=== PATIENT | male | born 1940 | race Caucasian/White ===

== ENCOUNTER 2019-01-21 14:40 | Emergency (ER) | payer MEDICARE, OTHER, SELFPAY ==
[2019-01-21] VITALS (7 sets, daily range): BP systolic 117–144; BP diastolic 60–77; PULSE 80–107; RESP 14–18; TEMP 36.1–37.1; O2SAT 96–98; BMI 25.0
[2019-01-21] MEDS: Lactated Ringers 1,000 ML 60 ML IV (15:32)
--- NOTE | 2019-01-21 15:34 | PCM.CONS.B ---
- Consult Date of Consult: 01/21/19 - Reason for Consult Chief Complaint: buttock abscess - asked to see patient by ED physician History of Present Illness: 78 y/o WM presents with large left buttock abscess noted for greater than 3 weeks. Tried to self treat at home. Seen by his PCP, and told to go to nearest ED. Has had smaller skin abscesses in the past. Denies TOB Denies diabetes Past Medical History: hypertension Past Surgical History: inguinal hernia repairs Medications: proscar metoprolol MVI Allergies: Has no known drug allergies Social history: TOB use denies Review of Systems: General - denies fevers Cardiovascular denies chest pain Pulmonary denies shortness of breath, denies coughing up blood Gastrointestinal denies blood in stools, denies fecal incontinence Neurological denies seizures Genitourinary denies blood in urine Hematological denies spontaneous/prolonged bleeding Skin see above Musculoskeletal denies difficulties Endocrine denies diabetes Psychological denies hallucinations Physical examination: Vital signs Temp 97.6F BP 131/74 General WD/WN WM in no apparent distress, alert and oriented, not septic appearing HEENT Normocephalic. EOM intact with sclera clear and no icterus noted. Neck is supple with no jugular venous distention noted. Trachea is midline. Lungs no labored breathing noted, such as retractions. No cough heard. Heart regular Abdomen soft and benign. Extremities no pitting edema noted. Genitourinary/Rectal deferred Skin large left buttock abscess with surrounding skin erythema extending about 15 cm Neurological non focal Psychological normal affect, patient is calm and appropriate Impression: large left buttock abscess Discussion/Plan: I have discussed the above with the patient and his who is present with him. I have offered incision and drainage of this lesion. The patient states that he doesn't like pain. I have therefore offered procedure to be done with IV moderate sedation and of course, local anesthetic. I have explained the procedure to the patient. I have counseled the patient as to the risks of the procedure, including but not limited to: infection, bleeding, continued wound infections, complications of anesthesia, etc.- the patient understands. I have answered all questions to the patient?s satisfaction and the patient has no further questions.
--- NOTE | 2019-01-21 15:56 | ED.VISSUMM ---
- ER Visit Summary Date of Service: 01/21/19 Chief Complaint: Buttock abscess History of Present Illness: The patient is a 78 M presenting with abscess left buttock. He states this has been ongoing for the past 1 month. He has had previous abscesses which have drained on their own. He went to his primary care physician today and was sent to the ED for further evaluation. He denies fever, drainage, or other complaints. Physical Examination: Vitals are stable. Patient is afebrile. Alert no acute distress. HEENT exam is unremarkable. Neck is supple. Lungs are clear and equal bilaterally. Heart is regular rate and rhythm. Abdomen is soft nontender nondistended. Buttock: Left buttock 15 cm abscess with fluctuance Extremities are unremarkable. Skin is warm and dry. Remainder of exam is unremarkable. Emergency Department Course and Treatment: Discussed with Dr. Cardenas who will evaluate the patient in the ED. I&D was performed per Dr. Cardenas. He was given Keflex and [place] per Dr. Cardenas. He will follow-up in the office on Monday. Advised return to ED for any worsening complaints. Disposition: Discharge home Impression: Left buttock abscess This note was generated with [employer] dictation software. It may contain incorrect words, spelling, and punctuation that were not noted in review of the chart prior to signing ED Disposition - Plan for ED Patient: Instructions: ED Abscess IandD Prescriptions: Cephalexin [Keflex] 500 mg PO Q12 7 Days #14 cap Hydrocodone/Acetaminophen [[place] 5-325 Tablet] 1 ea PO BID PRN PRN 4 Days #8 tab PRN Reason: Mod-Severe Pain (4-08/15) Referrals: Soraya Cardenas MD [STAFF PHYSICIAN] -
--- NOTE | 2019-01-21 16:09 | NURSING ---
procedure started at 1545, Dr. Cardenas pushed 3mg versed IVP and 50 mcg fentanyl at 1548, procedure started without issue, VSS, patient sedated but arousable. @ 1558 another 2mg versed and 50 mcg fentanyl given, VSS, patient still sedated but arousable with painful stimuli. Procedure complete @ 1618.
[2019-01-21] MEDS: Midazolam 5 MG/ML Syringe IV (16:21)
[2019-01-21] MEDS: fentaNYL 100 MCG/2 ML Ampul IV (16:21)
--- NOTE | 2019-01-21 16:25 | PCM.DC.GS ---
Discharge Diet: No Restrictions Discharge Activity: Return to Normal Activity, May not drive while taking narcotic pain medications. Additional Dressing/Incision Instructions:: Leave dressing in place Allergies/Adverse Reactions: Allergies No Known Allergies Allergy (Verified 01/21/19 14:43) Medications to take at Discharge Cephalexin [Keflex] 500 mg PO Q12 7 Days #14 cap 01/21/19 Finasteride [Proscar] 5 mg PO DAILY 01/21/19 Fish Oil/Dha/Epa [Fish Oil 1,200 mg Fish Oil] 1 each PO DAILY 01/21/19 Glucosamine/MSM/Chondroitin A [Glucosamine Chondroit MSM Tab] 1 each PO BID 01/21/19 Hydrocodone/Acetaminophen [[place] 5-325 Tablet] 1 ea PO BID PRN PRN 4 Days #8 tab 01/21/19 Metoprolol(XL)Succ [Toprol Xl (Beta Missael)] 50 mg PO DAILY 01/21/19 Multivitamin [One-Daily Multi-Vitamin] 1 each PO DAILY 01/21/19 The following prescriptions were given: Cephalexin [Keflex] 500 mg PO Q12 7 Days #14 cap Hydrocodone/Acetaminophen [[place] 5-325 Tablet] 1 ea PO BID PRN PRN 4 Days #8 tab PRN Reason: Mod-Severe Pain (4-10/10) Primary Care Physician: Care Physician,No Primary [Primary Care Provider] - Test Results: Test results from this visit will be discussed in further detail at your follow-up appointment, if applicable. Please Follow Up With: Soraya Cardenas MD - When: to be seen on January 23 at 3:00
--- NOTE | 2019-01-21 16:30 | DCINST.ED_ITS ---
ED Disposition - Plan for ED Patient: Instructions: ED Abscess IandD Prescriptions: Cephalexin [Keflex] 500 mg PO Q12 7 Days #14 cap Hydrocodone/Acetaminophen [[place] 5-325 Tablet] 1 ea PO BID PRN PRN 4 Days #8 tab PRN Reason: Mod-Severe Pain (-08/15) Referrals: Soraya Cardenas MD [STAFF PHYSICIAN] -
--- NOTE | 2019-01-22 11:08 | PCM.OPRPT ---
Report of Operation Date of Procedure: 01/21/19 Pre-Operative Diagnosis: left buttock abscess Post-Operative Diagnosis: same Surgery/Procedure Performed:: incision and drainage of left buttock abscess Description of Surgical Findings:: large acute and chronic left buttock abscess - 6 x 7 cm with a depth of 3 cm with surrounding erythema and induration, minimal skin necrosis Type of Anesthesia:: IV Sedation - 5 mg versed and 100 micrograms of fentanyl and local 1% xylocaine with epinephrine Anesthesiologist: Soraya Cardenas Specimen's removed: aerobic cultures Estimated Blood Loss (mL): minimal Fluids Replaced: 100 ml RL Description of Procedure: After informed consent was given, the patient was lying prone on the examination bed in the room. This was a bedside procedure done in the Emergency Room. Appropriate time out protocol was followed. IV conscious sedation was then administered by me. The patient?s left buttock then prepped with a surgical skin preparation and sterile surgical drapes were placed. The skin and subcutaneous tissues in and around the abscess were then infiltrated with 1% xylocaine with epinephrine. A skin incision was then made in a cruciate fashion with a 15 blade scalpel overlying the lesion. There was purulent fluid in the abscessed cavity. This was evacuated. The wound cavity had the following dimensions - 6 x 7 cm with a depth of 3 cm. There was fibrinous exudate and senescent granulation tissue and non - viable fatty tissues. Bleeding was controlled by pressure. The wound cavity was vigorously irrigated with hydrogen peroxide. The wound was then densely packed with gauze for hemostasis. Gauze dressings were then applied over the wound and a sterile Opsite dressing was applied. The patient tolerated the procedure well. He was discharged from the ED in stable condition. - Complications none noted
== END 2019-01-21 18:17 | disposition home or self-care (01) ==
LOC: ED 15:23
PROVIDERS: Emergency Provider Emergency Medicine
DX: L02.31 Cutaneous abscess of buttock (principal); I10 Essential (primary) hypertension; Z79.899 Other long term (current) drug therapy
CPT/HCPCS: 10060; 87070; 87075; 87077; 87186; 87205; 99152; 99153; 99282; J7120; A4216

== ENCOUNTER → 2019-06-19 10:25 | Outpatient (CLI) | payer MEDICARE, OTHER, SELFPAY ==
[2019-01-21 14:41] VITALS: BMI 25.0
[2019-06-19 12:15] LABS: Thyroid Stim Hormone (TSH) 4.89 uIU/mL (0.358-3.74); Vitamin B12 847 pg/mL (211-911)
[2019-06-21 05:06] LABS: Ceruloplasmin 24.9 mg/dL (16.0-31.0)
[2019-06-21 12:36] LABS: Copper, Serum or Plasma 112 ug/dL (72-166)
== END ==
PROVIDERS: Referring Provider Psychiatry & Neurology Neurology; Visit Provider Psychiatry & Neurology Neurology
DX: R25.1 Tremor, unspecified (principal)
CPT/HCPCS: 36415; 82390; 82525; 82607; 84443

== ENCOUNTER 2020-02-23 12:31 | Emergency (ER) | payer MEDICARE, OTHER, SELFPAY ==
[2019-01-21 14:41] VITALS: BMI 25.0
[2020-02-23 12:32] VITALS: BP 131/79; PULSE 63; RESP 16; TEMP 36.2; O2SAT 97; BMI 25.0
--- NOTE | 2020-02-23 12:47 | VDUE_ITS ---
Reason For Study: SWELLING Right Proximal Right jugular vein is spontaneous, widely patent, phasic, with no intraluminal echogenicity noted. Right subclavian vein is spontaneous, widely patent, phasic, with no intraluminal echogenicity noted. Right Lower Arm Right radial vein is compressible. Right ulnar vein is compressible. Right Arm Right axillary vein is spontaneous, patent, phasic, competent, compressible and demonstrates augmentation. Right brachial vein is compressible. Right cephalic vein is compressible. Right basilic vein is compressible. Interpretation Summary No evidence for acute deep venous thrombosis[right] upper extremity with patent and compressible cephalic and basilic veins. Ordering Physician: Lexa Padilla Performed By: Salvador Ford RVT ?
[2020-02-23 13:03] VITALS: BP 131/79; PULSE 63; RESP 16; TEMP 36.2; O2SAT 97
--- NOTE | 2020-02-23 13:54 | ED.VISSUMM ---
- ER Visit Summary Date of Service: 02/23/20 Chief Complaint: [Swelling to right hand and wrist] History of Present Illness: The patient is a 79 M [presents with symptoms that started about a week ago. Patient denies any injury. He denies any fever. Denies any cough. He denies recent travel or surgery. No history of gout. He denies any weakness in the extremity just it swollen and knees are having a hard time he can a fist with his hand because of that.] Physical Examination: [HEENT-PERRLA, EOMI. Cranial nerves II through XII grossly intact. TMs clear. Mucous membranes moist. No adenopathy. Cardiovascular-regular rate and rhythm without murmur or ectopy Lungs-clear to auscultation, chest wall stable without crepitus or subcu emphysema Abdomen-normoactive bowel sounds, soft, nontender, no rebound or rigidity, no peritoneal signs. Extremities-intact ?4, normal range of motion, normal pulses, atraumatic. Right hand-patient does have some faint edema of the hand compared to the left hand. He is got some faint erythema over the volar aspect of the wrist as well as the dorsum of the wrist. He has good range of motion at the wrist but has some mild discomfort with range of motion. He is neurovascular intact. He has normal pulses.] Test Results: [Venous Doppler of the right upper extremity obtained and was negative for DVT] Emergency Department Course and Treatment: [Etiology of symptoms unclear although in the differential would be gout or cellulitis. I will start patient on Keflex and prednisone. I will asked that he follow-up with his primary care physician 3 to 5 days] Treatment Plan: [Patient will be started on Keflex and prednisone and advised to follow-up with primary care physician in 3 to 5 days. Patient advised to return if worsening pain, fever, increased swelling or redness, or condition worsen anyway.] Disposition: [Discharged home in stable condition] Impression: [Edema right hand Right wrist pain] This note was generated with [employer] dictation software. It may contain incorrect words, spelling, and punctuation that were not noted in review of the chart prior to signing ED Disposition - Plan for ED Patient: Referrals: Care Physician,No Primary [Primary Care Provider] -
--- NOTE | 2020-02-23 13:56 | ED.DEP ---
ED Disposition - Plan for ED Patient: Instructions: ED Peripheral Edema, Unilateral, ED ARTHRITIS Gout, ED Cellulitis Prescriptions: Cephalexin [Keflex] 500 mg PO Q12 #10 cap Prescription Printed Prednisone 20 mg PO BID #10 tab Prescription Printed Referrals: Care Physician,No Primary [Primary Care Provider] - 3-5 Days
[2020-02-23] MEDS: Cephalexin 250 MG Capsule 500 MG PO (14:16)
[2020-02-23] MEDS: predniSONE 20 MG Tablet 40 MG PO (14:17)
[2020-02-23 14:19] VITALS: BP 131/79; PULSE 63; RESP 16; TEMP 36.2; O2SAT 97
== END 2020-02-23 14:19 | disposition home or self-care (01) ==
PROVIDERS: Emergency Provider Emergency Medicine
DX: R60.0 Localized edema (principal); M25.531 Pain in right wrist; M79.89 Other specified soft tissue disorders; Z79.899 Other long term (current) drug therapy
CPT/HCPCS: 93971; 99283

== ENCOUNTER → 2021-05-19 12:32 | Outpatient (CLI) | payer OTHER, SELFPAY ==
[2021-05-19 14:00] LABS: Thyroid Stim Hormone (TSH) 4.75 uIU/mL (0.358-3.74)
== END ==
DX: R79.89 Other specified abnormal findings of blood chemistry (principal)
CPT/HCPCS: 36415; 84443

== ENCOUNTER → 2023-03-03 | Outpatient (CLI) | payer OTHER, SELFPAY ==
[2023-03-03 10:01] LABS: Absolute Lymphocyte Count 1.39 X10^3/uL (0.83-4.51); Absolute Neutrophil Count 2.1 X10^3/uL (2.0-7.7); Basophil# 0.03 X10^3/uL; Basophil% 0.7 % (0-1); Eosinophil# 0.12 X10^3/uL; Eosinophils% 2.9 % (0-5); Hematocrit 41.6 % (40-54); Lymphocyte # 1.39 X10^3/ul (0.83-4.51); Lymphocyte % 33.7 % (19-41); Mean Corp Hgb Conc 33.7 g/dL (32-36); Mean Corpuscular Volume 95.2 fL (80-94); Mean Platelet Vol. 8.9 fl (6.2-12.0); Monocyte# 0.47 X10^3/uL; Monocyte% 11.4 % (0-10); NRBC Flagged by Analyzer 0 % (0-5); Neutrophil % 51.1 % (47-70); Platelet Count 214 K/mm3 (150-450); RBC Distribution Width CV 12.8 % (11.6-14.6); RBC Distribution Width SD 44.7 fl (35.1-43.9); Red Blood Count 4.37 M/mm3 (4.6-6.2); White Blood Count 4.1 K/mm3 (4.4-11.0)
[2023-03-03 10:39] LABS: Vitamin B12 889 pg/mL (211-911); Vitamin D,25 Hydroxy 59.6 ng/mL
[2023-03-03 10:47] LABS: ALB/GLOB Ratio 1.1 RATIO (0.9-2.4); AST(SGOT) 20 U/L (15-37); Alanine Aminotransfer ALT/SGPT 35 U/L (16-61); Albumin, Serum 3.7 g/dL (3.2-5.0); Alkaline Phosphatase 83 U/L (45-117); Anion Gap 2 (5-15); BUN 23 mg/dL (7-18); BUN/Creat Ratio 18.1 RATIO (10-20); Calcium,Total 8.9 mg/dL (8.5-10.1); Chloride 110 mmol/L (98-107); Cholesterol 126 mg/dL (200); Creatinine, Serum 1.27 mg/dL (0.70-1.30); EST Glomerular Filtration Rate 58 mL/min (>60); Est Glom Filt Rate - Afr Amer 70 mL/min (>60); Free T3 2.5 pg/mL (2.18-3.98); Globulin 3.5 g/dL (2.2-4.2); Glucose 104 mg/dL (74-106); High Density Lipoprotein 30 mg/dL; Protein, Total 7.2 g/dL (6.4-8.2); Sodium Level 137 mmol/L (136-145); T4 Free Direct 0.96 ng/dL (0.76-1.46); Thyroid Stim Hormone (TSH) 3.65 uIU/mL (0.358-3.74); Triglycerides 249 mg/dL; Very Low Density Lipoprotein 50 mg/dL (5-40)
== END | disposition home or self-care (01) ==
PROVIDERS: PCP Internal Medicine; Referring Provider Internal Medicine; Visit Provider Internal Medicine
DX: E78.1 Pure hyperglyceridemia (principal); G25.0 Essential tremor; E55.9 Vitamin D deficiency, unspecified
CPT/HCPCS: 36415; 80053; 80061; 82306; 82607; 84439; 84443; 84481; 85025

== ENCOUNTER 2023-06-22 19:10 | Emergency (ER) | payer OTHER, SELFPAY ==
[2023-06-22 19:11] VITALS: BP 113/74; PULSE 88; RESP 18; TEMP 36.3; O2SAT 96; BMI 55.3
--- NOTE | 2023-06-22 22:02 | EX.ED.DYSGE1 ---
HPI History of Present Illness Chief Complaint: Cellulitis Detail of Chief Complaint: Abscess Informant: patient and spouse/S.O. Onset/Context/Timing Onset: Weeks (1 week) Current Severity: Mild Maximum Severity: Moderate Narrative Narrative: Patient presents with a boil on his buttock. He states the lesions been present for about a week but continues to enlarge and become more painful. He has not had any drainage from the area. He states it is painful to sit. He denies fever or chills. He has had similar boils in the past that required I&D. He has not seen his physician. [facility] Medical History Enlarged prostate Inguinal hernia with strangulation Home Medications finasteride 5 mg tablet 5 mg PO DAILY 01/21/19 [History Last Taken 01/20/19] multivitamin (One Daily Multivitamin tablet) 1 ea PO DAILY 01/21/19 [History Last Taken 01/21/19] apple cider vinegar 500 mg tablet mg PO 01/16/23 [History Last Taken Unknown] ascorbic acid (vitamin C) 500 mg capsule mg PO 01/16/23 [History Last Taken Unknown] cholecalciferol (vitamin D3) 50 mcg (2,000 unit) capsule 50 mcg PO DAILY 01/16/23 [History Last Taken Unknown] echinacea 400 mg capsule 400 mg PO DAILY 01/16/23 [History Last Taken Unknown] metoprolol succinate 50 mg tablet,extended release 24 hr 25 mg PO DAILY 01/16/23 [History Last Taken Unknown] protandim PO 01/16/23 [History Last Taken Unknown] topiramate 25 mg capsule,extended release 24 hr 25 mg PO DAILY 01/16/23 [History Last Taken Unknown] vitamin B complex (B Complex-Vitamin B12 tablet) 1 tab PO DAILY 01/16/23 [History Last Taken Unknown] zinc sulfate 50 mg zinc (220 mg) capsule (Orazinc) 50 mg PO DAILY 01/16/23 [History Last Taken Unknown] levothyroxine 25 mcg tablet (Synthroid) 25 mcg PO DAILY #90 tabs 02/17/23 [Rx Last Taken Unknown] cephalexin 500 mg capsule 500 mg PO Q6 #40 CAPSULES 06/22/23 [Rx Last Taken Unknown] sulfamethoxazole 800 mg-trimethoprim 160 mg tablet (Bactrim DS) 1 tab PO BID #20 tabs 06/22/23 [Rx Last Taken Unknown] Allergy/AdvReac Type Severity Reaction Status Date / Time No Known Allergies Allergy Verified 06/22/23 19:11 Family History Other Cancer Emphysema lung Prostate cancer Surgical History History of appendectomy History of cholecystectomy History of colonoscopy History of hernia repair Hx of removal of cyst Social History Smoking Status: Never smoker alcohol intake: never substance use type: does not use do you feel safe at home: Yes ROS ROS ED Constitutional Constitutional ED: Denies chills or fever(s) Eyes Eyes: Denies change in vision ENT ENT ED: Denies rhinorrhea or sore throat Cardiovascular Cardiovascular: Denies chest pain or palpitations Respiratory/Chest Respiratory/Chest: Denies cough or dyspnea Gastrointestinal Gastrointestinal: Denies abdominal pain, nausea or vomiting Musculoskeletal Musculoskeletal: Denies back pain or extremity pain Integumentary Reports abscess; Denies Abrasions or rash Neurologic Neurologic: Denies headache(s) or weakness Psychiatric Psychiatric: Denies anxiety or depression Allergic/Immunologic Allergic/Immunologic ED: Denies lip swelling or urticaria EXAM Physical Exam Const Vital Signs: 06/22/23 19:11 Temperature 97.3 F L Temperature Source Temporal Pulse Rate 88 Respiratory Rate 18 Blood Pressure 113/74 Blood Pressure Mean 87 Pulse Ox 96 Oxygen Delivery Method Room Air Positive well nourished and well developed General Appearance ED: well developed HEENT Reports normocephalic and head/scalp atraumatic Eyes PERRL and EOMs intact bilaterally Neck supple Chest Wall inspection of chest normal and palpation of chest normal Resp normal respiratory effort and clear to auscultation bilaterally Cardio regular rate and regular rhythm GI normal to inspection, nondistended, normoactive bowel sounds GI Narrative: Patient has a 3 x 6 cm firm area of induration along the lower border of the left buttock. There is no fluctuance at this time. No spontaneous drainage. Palpation: soft Back/Spine no CVA tenderness Extremity normal to inspection Neuro oriented x3 and no sensory deficits noted Sensorium / Orientation: alert Motor Exam: strength 5/5 throughout Psych mental status grossly normal Skin Skin Narrative: Skin abscess as noted above. MDM MDM MDM Narrative Medical decision making narrative: Patient has an area of induration with no fluctuance. Patient be treated with oral antibiotics and warm compresses to the area. He was advised that if he were develop fluctuance he may require I&D, at this time, however, I do not feel that there is significant fluid to drain. Patient is comfortable with this plan. Patient is treat with Bactrim and Keflex, first dose given here. Discharge Plan Triage Chief Complaint: Cellulitis ED Provider: Nina Bruce Dx/Rx/DC Orders Clinical Impression: Cutaneous abscess Instructions: ED Abscess Antibiotic Treatment Only Prescriptions: New sulfamethoxazole-trimethoprim [Bactrim DS] 800-160 mg tablet 1 tab PO BID Qty: 20 0RF cephalexin 500 mg capsule 500 mg PO Q6 Qty: 40 0RF No Action zinc sulfate [Orazinc] 50 mg zinc (220 mg) capsule 50 mg PO DAILY apple cider vinegar 500 mg tablet PO ascorbic acid (vitamin C) 500 mg capsule PO cholecalciferol (vitamin D3) 50 mcg (2,000 unit) capsule 50 mcg PO DAILY vitamin B complex [B Complex-Vitamin B12] Tablet 1 tab PO DAILY echinacea 400 mg capsule 400 mg PO DAILY Rx Instructions: administer with meals protandim PO topiramate 25 mg capsule,extended release 24hr 25 mg PO DAILY multivitamin [One Daily Multivitamin] 1 EACH tablet 1 ea PO DAILY finasteride 5 MG tablet 5 mg PO DAILY metoprolol succinate 50 mg tablet extended release 24 hr 25 mg PO DAILY levothyroxine [Synthroid] 25 mcg tablet 25 mcg PO DAILY Qty: 90 3RF Primary Care Provider: Shanika Enamorado Referrals: Shanika Enamorado MD [Primary Care Provider] - 1 Week Disposition Disposition: Home, Self Care Discharge Date/Time: 06/22/23 22:16
[2023-06-22] MEDS: Cephalexin 250 MG Capsule 500 MG PO (22:12)
[2023-06-22] MEDS: Smz/Tmp Ds Tablet 1 TABLET PO (22:12)
== END 2023-06-22 22:16 | disposition home or self-care (01) ==
PROVIDERS: Emergency Provider Emergency Medicine; PCP Internal Medicine; Visit Provider Emergency Medicine
DX: L02.31 Cutaneous abscess of buttock (principal); N40.0 Benign prostatic hyperplasia without lower urinary tract symptoms; Z79.899 Other long term (current) drug therapy
CPT/HCPCS: 99283

== ENCOUNTER → 2024-01-25 | Outpatient (CLI) | payer MEDICARE, SELFPAY ==
[2024-01-25 11:24] LABS: Absolute Lymphocyte Count 1.99 X10^3/uL (0.83-4.51); Absolute Neutrophil Count 3.4 X10^3/uL (2.0-7.7); Basophil# 0.05 X10^3/uL; Basophil% 0.8 % (0-1); Eosinophil# 0.21 X10^3/uL; Eosinophils% 3.4 % (0-5); Hematocrit 42.1 % (40-54); Hemoglobin 13.8 g/dL (13.0-16.5); Lymphocyte # 1.99 X10^3/ul (0.83-4.51); Lymphocyte % 32.4 % (19-41); Mean Corp Hgb Conc 32.8 g/dL (32-36); Mean Corpuscular Hgb 31.1 pg (27.0-32.0); Mean Corpuscular Volume 94.8 fL (80-94); Mean Platelet Vol. 8.9 fl (6.2-12.0); Monocyte# 0.49 X10^3/uL; NRBC Flagged by Analyzer 0 % (0-5); Neutrophil # 3.39 X10^3/uL (2.7-7.7); Neutrophil % 55.2 % (47-70); Platelet Count 250 K/mm3 (150-450); Red Blood Count 4.44 M/mm3 (4.6-6.2); White Blood Count 6.1 K/mm3 (4.4-11.0)
[2024-01-25 13:37] LABS: AST(SGOT) 19 U/L (15-37); Alanine Aminotransfer ALT/SGPT 35 U/L (16-61); Albumin, Serum 3.7 g/dL (3.2-5.0); Alkaline Phosphatase 104 U/L (45-117); Anion Gap 5 (5-15); BUN 21 mg/dL (7-18); BUN/Creat Ratio 16.5 RATIO (10-20); Calcium,Total 8.8 mg/dL (8.5-10.1); Chloride 111 mmol/L (98-107); Cholesterol 137 mg/dL (200); Creatinine, Serum 1.27 mg/dL (0.70-1.30); EST Glomerular Filtration Rate 58 mL/min (>60); Est Glom Filt Rate - Afr Amer 70 mL/min (>60); Free T3 2.4 pg/mL (2.18-3.98); Globulin 3.8 g/dL (2.2-4.2); Glucose 108 mg/dL (74-106); High Density Lipoprotein 38 mg/dL; PSA,Total - Annual Screen 0.95 ng/mL (0.00-4.00); Potassium 4.3 mmol/L (3.5-5.1); Protein, Total 7.5 g/dL (6.4-8.2); Sodium Level 140 mmol/L (136-145); T4 Free Direct 0.87 ng/dL (0.76-1.46); Thyroid Stim Hormone (TSH) 3.02 uIU/mL (0.358-3.74); Triglycerides 154 mg/dL; Very Low Density Lipoprotein 31 mg/dL (5-40)
[2024-01-25 13:49] LABS: Vitamin D,25 Hydroxy 47.9 ng/mL
== END | disposition home or self-care (01) ==
LOC: LAB 10:49
PROVIDERS: PCP Internal Medicine; Referring Provider Internal Medicine; Visit Provider Internal Medicine
DX: Z12.5 Encounter for screening for malignant neoplasm of prostate (principal); N40.1 Benign prostatic hyperplasia with lower urinary tract symptoms; E78.1 Pure hyperglyceridemia; G25.0 Essential tremor; E55.9 Vitamin D deficiency, unspecified; Z13.220 Encounter for screening for lipoid disorders
CPT/HCPCS: 36415; 80053; 80061; 82306; 84153; 84439; 84443; 84481; 85025; G0103

== ENCOUNTER → 2025-02-18 | Outpatient (CLI) | payer MEDICARE, SELFPAY ==
[2025-02-18 11:29] LABS: Absolute Lymphocyte Count 2.17 X10^3/uL (0.83-4.51); Absolute Neutrophil Count 3.3 X10^3/uL (2.0-7.7); Basophil# 0.04 X10^3/uL; Basophil% 0.6 % (0-1); Eosinophil# 0.22 X10^3/uL; Eosinophils% 3.5 % (0-5); Hematocrit 39.2 % (40-54); Hemoglobin 13.6 g/dL (13.0-16.5); Lymphocyte # 2.17 X10^3/ul (0.83-4.51); Lymphocyte % 34.6 % (19-41); Mean Corp Hgb Conc 34.7 g/dL (32-36); Mean Corpuscular Hgb 32.5 pg (27.0-32.0); Mean Corpuscular Volume 93.8 fL (80-94); Mean Platelet Vol. 9.2 fl (6.2-12.0); Monocyte# 0.52 X10^3/uL; Monocyte% 8.3 % (0-10); NRBC Flagged by Analyzer 0 % (0-5); Neutrophil # 3.31 X10^3/uL (2.7-7.7); Neutrophil % 52.7 % (47-70); Platelet Count 229 K/mm3 (150-450); RBC Distribution Width CV 13.1 % (11.6-14.6); RBC Distribution Width SD 45.1 fl (35.1-43.9); Red Blood Count 4.18 M/mm3 (4.6-6.2); White Blood Count 6.3 K/mm3 (4.4-11.0)
[2025-02-18 12:48] LABS: ALB/GLOB Ratio 1.4 RATIO (0.9-2.4); AST(SGOT) 26 U/L (<=37); Alanine Aminotransfer ALT/SGPT 29 U/L (<=46); Alkaline Phosphatase 93 U/L (40-129); Anion Gap 9 (5-15); BUN 19 mg/dL (4-19); BUN/Creat Ratio 14.9 RATIO (10-20); Calcium,Total 9.1 mg/dL (7.6-11.0); Carbon Dioxide 21.6 mmol/L (21.0-32.0); Chloride 109 mmol/L (98-108); Cholesterol 129 mg/dL (<=200); Creatinine, Serum 1.28 mg/dL (0.70-1.20); EST Glomerular Filtration Rate 55 (>60); Glucose 100 mg/dL (70-99); High Density Lipoprotein 33 mg/dL; Low Density Lipoprotein Calc. 52 mg/dL; Magnesium 2.2 mg/dL (1.5-2.2); Potassium 4.5 mmol/L (3.3-5.1); Sodium Level 139 mmol/L (133-145); Total Bilirubin 0.57 mg/dL (0.00-1.30); Triglycerides 224 mg/dL; Very Low Density Lipoprotein 45 mg/dL (5-40); cholesterol:hdl ratio screen 3.94
[2025-02-18 12:54] LABS: Free T3 2.8 pg/mL (2.18-3.98); PSA,Total - Annual Screen 1.26 ng/mL (0.02-4.00); Vitamin B12 1345 pg/mL (180-914); Vitamin D,25 Hydroxy 38.1 ng/mL (30-100)
== END | disposition home or self-care (01) ==
LOC: LAB 10:24
PROVIDERS: PCP Internal Medicine; Referring Provider Internal Medicine; Visit Provider Internal Medicine
DX: E78.1 Pure hyperglyceridemia (principal); E55.9 Vitamin D deficiency, unspecified; E03.9 Hypothyroidism, unspecified; N40.1 Benign prostatic hyperplasia with lower urinary tract symptoms; N13.8 Other obstructive and reflux uropathy; E53.8 Deficiency of other specified B group vitamins; Z12.5 Encounter for screening for malignant neoplasm of prostate; G25.0 Essential tremor; Z13.220 Encounter for screening for lipoid disorders
CPT/HCPCS: 36415; 80053; 80061; 82306; 82607; 83735; 84153; 84439; 84443; 84481; 85025; G0103

== ENCOUNTER → 2025-03-03 | Outpatient (CLI) | payer MEDICARE, SELFPAY ==
--- NOTE | 2025-03-03 08:52 | US_ITS ---
PROCEDURE: BREAST LIMITED UNILATERAL 03/03/2025 REASON FOR EXAM: LEFT BREAST PAIN. Left breast palpable abnormality. Palpable abnormality and pain correlates to a mass seen on the mammogram. Inconclusive mammogram. Evaluate. TECHNIQUE: Targeted left breast ultrasound. COMPARISON: Mammogram dated 03/03/2025 FINDINGS: Left breast ultrasound was targeted to the palpable mass that is painful. There is a solid, hypoechoic, irregularly marginated masslike structure seen in the retroareolar region of the left breast correlating to the area that is palpable and painful. The masslike structure does have some blood flow to it. This does correlate to the mass seen on the mammogram. It measures a proximally 2 cm. This area is most compatible with gynecomastia. US/Breast Limited Unilateral IMPRESSION: Impression: The palpable area that is painful is most compatible with gynecomas tia. Birads: BI-RADS 2: BENIGN. RECOMMEND: Follow-up ultrasound if it increases in size. Reading Location: [id number]
--- NOTE | 2025-03-03 08:52 | US_ITS ---
PROCEDURE: BREAST LIMITED UNILATERAL 03/03/2025 REASON FOR EXAM: RIGHT BREAST PAIN TECHNIQUE: Targeted right breast ultrasound. COMPARISON: Mammogram study dated 02/23/2025 FINDINGS: Right breast ultrasound was targeted to the palpable mass that is painful. There is a solid, hypoechoic, irregularly marginated masslike structure seen in the retroareolar region of the right breast correlating to the area that is palpable and painful. The masslike structure does have some blood flow to it. This does correlate to the mass seen on the mammogram. It measures a proximally 2 cm. This area is most compatible with gynecomastia. US/Breast Limited Unilateral IMPRESSION: Impression: The palpable area that is painful is most compatible with gynecomas tia. Birads: BI-RADS 2: BENIGN. RECOMMEND: Follow-up ultrasound if it increases in size. Reading Location: [id number]
--- NOTE | 2025-03-03 08:52 | BI_ITS ---
EXAM: DIAG MAMM W/CAD, BILAT N/A CLINICAL HISTORY: M, Age 84 y/o , BREAST TENDERNESS. Bilateral breast palpable abnormalities. TECHNIQUE: Bilateral Diagnostic digital breast tomosynthesis with 2D and 3D images. Computer aided detection. COMPARISON: None. FINDINGS: TISSUE DENSITY: The breast tissue is almost entirely fatty. Bilateral Breast Mammographic Findings: There are 3 cm nodular masslike densities seen in the retroareolar region of both the right and left breasts correlating to the palpable areas that are painful. These areas probably represent gynecomastia however, further workup with ultrasound will be performed for further evaluation. BI/DIAG MAMM W/CAD, BILAT IMPRESSION: OVERALL FINAL ASSESSMENT: BIRADS 0 Incomplete: Need additional imaging evaluati on and/or prior mammograms for comparison.. RECOMMENDATION: Ultrasound. A letter with findings and recommendations will be mailed to the patient. Reading Location: [id number]
== END | disposition home or self-care (01) ==
PROVIDERS: PCP Internal Medicine; Referring Provider Internal Medicine; Visit Provider Internal Medicine
DX: N64.4 Mastodynia (principal); N64.59 Other signs and symptoms in breast
CPT/HCPCS: 76642; 77062; 77066; G0279